=== PATIENT | female | born 1970 | race Caucasian/White ===

== ENCOUNTER 2022-01-24 08:45 | Day surgery (SDC) | payer BC ==
[~2022-01-24 08:45] MED LIST: Midazolam 1 MG/ML 2 ML SDV ONE; Propofol 200 MG/20 ML SDV ONE; fentaNYL 50 MCG/ML SDV ONE
[2022-01-24] MEDS ORDERED: Lactated Ringers 1,000 ML IV SCH (09:10)
[2022-01-24] MEDS ORDERED: Propofol 200 MG/20 ML SDV ONE (10:18)
== END 2022-01-24 11:46 | disposition home or self-care (01) ==
LOC: JP.SDS 08:45
PROVIDERS: ATTEND Student in an Organized Health Care Education/Training Program
DX: Z12.11 Encounter for screening for malignant neoplasm of colon (principal); K62.1 Rectal polyp; Z79.899 Other long term (current) drug therapy
CPT/HCPCS: 45385; 88305; J2250; J2704; J3010; J7120